=== PATIENT | female | born 1960 | race Caucasian/White ===

== ENCOUNTER 2019-05-29 12:01 | Emergency (ER) | payer OTHER ==
--- NOTE | 2019-05-29 12:43 | XRAY Report ---
Reason: swelling and pain Procedure Date: 05/29/2019 Accession Number: [id number] / [id number] Procedure: XR - Hand 3 View RT CPT Code: Final Report FULL RESULT: EXAM: RIGHT HAND RADIOGRAPHY EXAM DATE: 05/29/2019 12:17 PM. CLINICAL HISTORY: Swelling and pain. COMPARISON: XR WRIST COMPLETE 3 VIEWS 05/27/2010 4:10 AM. TECHNIQUE: 3 views. FINDINGS: Bones: Remote distal radial ORIF with plate and screws. No recent fracture demonstrated. Joints: Normal. No subluxations. Soft Tissues: Normal. No soft tissue swelling. IMPRESSION: 1. Remote distal right radial ORIF with plate and screws. Anatomic alignment. 2. No recent fracture demonstrated. RADIA
--- NOTE | 2019-05-29 13:11 | ED Physician Documentation ---
History of Present Illness - Stated complaint Stated Complaint: R HAND INJURY - Chief complaint Chief Complaint: Ext Problem - Additonal information Additional information: This is a 58 year old female who presents with right hand pain. Patient states she had a glancing blow on her hand about a week ago, and since then she had some pain in the hand which is worsened over the last day or 2. It is located over the MCP of the middle finger and also the ring finger. She has some difficulty flexing extending his fingers because of the pain. The rest of her hand is painless. She denies any fever. There is no laceration or skin damage in that area. She has never had gout before. 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 - Present Medications Home Medications: Ambulatory Orders Medication Instructions Recorded Confirmed Ibuprofen 600 mg PO Q6H PRN #30 tablet 05/29/19 - Allergies Allergies/Adverse Reactions: Allergies Allergy/AdvReac Type Severity Reaction Status Date / Time No Known Drug Allergies Allergy Verified 05/29/19 12:07 - Social History Does the pt smoke?: No Smoking Status: Never smoker Does the pt drink ETOH?: Yes Does the pt have substance abuse?: No PD ED PE NORMAL - Vitals Vital signs reviewed: Yes - General General: Alert and oriented X 3, No acute distress - HEENT HEENT: Atraumatic - Cardiac Cardiac: RRR - Respiratory Respiratory: No respiratory distress - Derm Derm: Warm and dry - Extremities Extremities: Other (On the dorsal right hand over the MCP of the middle finger there is a 1.5 x 2 cm area of erythema, this is tender. There is edema which extends up the middle finger and the ring finger. There is no volar redness was or swelling. There is no tenderness that tracks along the flexor tendons or the dorsal extension tendons. Capillary refill is brisk and sensation is intact light touch.) - Neuro Neuro: Alert and oriented X 3 - Psych Psych: Normal mood, Normal affect Results - Vitals Vitals: Oxygen O2 Source Room air - Labs Labs: Laboratory Tests 05/29/19 05/29/19 13:54 13:54 WBC 6.3 RBC 5.07 Hgb 15.9 Hct 47.2 H MCV 93.1 MCH 31.4 H MCHC 33.7 RDW 12.2 Plt Count 213 MPV 8.6 Neut # (Auto) 4.1 Lymph # (Auto) 1.5 [place] # (Auto) 0.6 Eos # (Auto) 0.1 Baso # (Auto) 0.1 Absolute Nucleated RBC 0.00 Nucleated RBC % 0.0 C-Reactive Protein 1.5 H PD MEDICAL DECISION MAKING - ED course Complexity details: considered differential (Fracture, gout, pseudogout, septic arthritis, arthritis) ED course: Pt is non-toxic, has isolated MCP swelling and redness. XR shows no fracture, it does show a potential tophus. Labs show only slightly elevated CRP, normal WBC. 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 The joint space is very small and not amenable for arthrocentesis at this time. I discussed that if patient is having any worsening, signs of infection such as fever or redness streaking up the hand, or tracking along the tendons, she needs to return immediately to the ED. I discussed the diagnostic uncertainty and that though septic arthitis appears unlikely, if this is an infection it would need immediate treatment and she should have low threshold for return, and close outpatient follow up. Pt agrees and was discharged home. Departure - Departure Disposition: 01 Home, Self Care Clinical Impression: Hand pain Qualifiers: Laterality: right Qualified Code(s): M79.641 - Pain in right hand Condition: Good Follow-Up: Your,PCP [Other] Prescriptions: Ibuprofen 600 mg PO Q6H PRN #30 tablet PRN Reason: Pain Comments: You were seen today for some redness pain and swelling in your hand. I think this is most likely gout or pseudogout, (inflammation of the joint due to crystal deposits). Treatment for this is ibuprofen 600-800 mg every 6 hours until your symptoms are resolving. If you develop signs of infection such as redness streaking up your hand, fever, or other signs or worsening, please return to the emergency department. Otherwise please follow-up with your primary care provider. Forms: Activity restrictions Discharge Date/Time: 05/29/19 15:10
[2019-05-29 14:07] LABS: BASOPHILS # (AUTO) 0.1 10^3/uL (0.0-0.1); BASOPHILS % (AUTO) 1.1 %; EOSINOPHILS # (AUTO) 0.1 10^3/uL (0.0-0.7); EOSINOPHILS % (AUTO) 1.1 %; HGB - HEMOGLOBIN 15.9 g/dL (12.0-16.0); LYMPHOCYTES # (AUTO) 1.5 10^3/uL (1.5-3.5); LYMPHOCYTES % (AUTO) 23.8 %; MEAN CORPUSCULAR HEMOGLOBIN 31.4 pg (27.0-31.0); MEAN CORPUSCULAR HGB CONC 33.7 g/dL (32.0-36.0); MEAN CORPUSCULAR VOLUME 93.1 fL (81.0-99.0); MEAN PLATELET VOLUME 8.6 fL (7.9-10.8); MONOCYTES # (AUTO) 0.6 10^3/uL (0.0-1.0); MONOCYTES % (AUTO) 9.3 %; NEUTROPHILS # (AUTO) 4.1 10^3/uL (1.5-6.6); NEUTROPHILS % (AUTO) 64.4 %; PLT - PLATELET COUNT 213 10^3/uL (130-450); RED BLOOD COUNT 5.07 10^6/uL (4.20-5.40); RED CELL DISTRIBUTION WIDTH 12.2 % (12.0-15.0); WHITE BLOOD COUNT 6.3 x10^3/uL (4.8-10.8)
[2019-05-29 15:17] VITALS: BP 162/90
== END 2019-05-29 15:10 | disposition home or self-care (01) ==
LOC: ED 12:01
DX: M79.641 Pain in right hand (principal)
CPT/HCPCS: 1040M; 36415; 73130; 85025; 86140; 99283; 99284

== ENCOUNTER 2023-03-14 19:37 | Emergency (ER) | payer MEDICAID ==
[2023-03-14 19:43] VITALS: O2SAT 100
--- NOTE | 2023-03-14 19:56 | ED Physician Documentation ---
History of Present Illness - Stated complaint Stated Complaint: L SIDE NUMB/BLURRY VISION - Chief complaint Chief Complaint: Neuro - Additonal information Additional information: 62-year-old female presents to the emergency department for evaluation of 2 days left-sided facial numbness perioral numbness left arm numbness and left lateral foot numbness. The symptoms are intermittent without any inciting factors. They typically last 15 to 20 minutes before abating. Today she reports she was feeling off balance when walking. also reporting blurriness in left eye without eye pain or loss of vision. She has had no falls or trauma. Denies any cva history but does have a history of untreated hypertension. Nondiabetic. Non- smoker. She took 2 large aspirin today because she was concerned she could be having a stroke thus she presents now to the ER. On at the time of my examination she reports that the numbness that she initially had has abated. She has no obvious focal deficits. NIHSS is 0. Review of Systems Constitutional: denies: Fever Cardiac: reports: Reviewed and negative Respiratory: reports: Reviewed and negative GI: reports: Reviewed and negative : reports: Reviewed and negative Neurologic: reports: Numbness. 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 - Present Medications Home Medications: Ambulatory Orders Medication Instructions Recorded Confirmed Ibuprofen 600 mg PO Q6H PRN #30 tablet 05/29/19 - Allergies Allergies/Adverse Reactions: Allergies Allergy/AdvReac Type Severity Reaction Status Date / Time No Known Drug Allergies Allergy Verified 03/14/23 19:39 - Social History Does the pt smoke?: No Smoking Status: Never smoker Does the pt drink ETOH?: Yes Does the pt have substance abuse?: No PD ED PE NORMAL - General General: Alert and oriented X 3, No acute distress - HEENT HEENT: Atraumatic, Ears normal, Moist mucous membranes - Neck Neck: Supple, no meningeal sign, No adenopathy - Cardiac Cardiac: RRR, No murmur - Respiratory Respiratory: No respiratory distress, Clear bilaterally - Abdomen Abdomen: Normal bowel sounds, Soft, Non tender - Back Back: No CVA TTP - Derm Derm: Normal color, Warm and dry, No rash - Extremities Extremities: No deformity - Neuro Neuro: Alert and oriented X 3, setter up 2-12 intact, No motor deficit, Normal speech Eye Opening: Spontaneous Motor: Obeys Commands Verbal: Oriented GCS Score: 15 - Psych Psych: Normal mood Results - Vitals Vitals: Vital Signs - 24 hr 03/14/23 19:39 Temperature 36.5 C Heart Rate 86 Respiratory 16 Rate Blood Pressure 180/90 H O2 Saturation 100 Oxygen O2 Source Room air - EKG (time done) 1958 EKG releavant findings:: EKG personally interpreted by author of this note. Relevant findings are: Rate: Rate (enter#) (80) Rhythm: NSR [place]: Normal Intervals: Normal MD. No: Prolonged QT QRS: LVH Ischemia: Q waves (anterior leads) Compare to prior EKG: Old EKG unavailable Computer interpretation: Agree with computer - Labs Labs: Laboratory Tests 03/14/23 03/14/23 20:12 20:45 WBC 6.0 RBC 5.19 Hgb 15.9 Hct 46.6 MCV 89.8 MCH 30.6 MCHC 34.1 RDW 12.2 Plt Count 201 MPV 10.1 Neut # (Auto) 3.2 Lymph # (Auto) 2.0 Stone # (Auto) 0.6 Eos # (Auto) 0.2 Baso # (Auto) 0.1 Absolute Nucleated RBC 0.00 Nucleated RBC % 0.0 Sodium 138 Potassium 3.4 L Chloride 100 L Carbon Dioxide 27 Anion Gap 11.0 BUN 9 Creatinine 0.4 Estimated GFR (MDRD) 163 Glucose 267 H Calcium 9.6 Total Bilirubin 0.5 AST 44 H ALT 79 H Alkaline Phosphatase 66 Troponin I High Sens 3.5 Total Protein 7.3 Albumin 4.4 Globulin 2.9 Albumin/Globulin Ratio 1.5 Lipase 54 H PD Medical Decision Making - ED course Complexity details: reviewed results, re-evaluated patient, d/w patient ED course: 62-year-old female presents emergency department for evaluation of intermittent left facial numbness, left arm numbness and numbness in the left lateral foot. Symptoms began yesterday. She reports that the symptoms will persist for about 15 to 20 minutes before fully abating. She states that when she was walking today she was feeling off balance and dizzy. No headaches or diplopia. She admits longstanding history of untreated hypertension. Non-smoker. On presentation the emergency department she is alert and well-appearing. She has a nonfocal neuro exam. NIHSS of 0. Initial vital signs revealed some modest hypertension with blood pressure 180/90. Twelve-lead EKG is interpreted by myself was nonischemic though there were Q waves in the anterior leads. troponin negative Initially I did order CBC and electrolytes. Per my interpretation no abnormalities with the CBC. However her chemistry reveals a blood glucose of 267. She does have mild AST ALT derangement of 44 and 79. Patient is concerned that her symptomatology could be suggestive of a stroke. She does have multiple risk factors including untreated hypertension and now diabetes. She did take 2 large adult aspirin prior to coming into the ER. CT angio of the head and neck is pending to evaluate for any stenosis or aneurysms that could become contributing to her symptoms. Patient will be signed out to my nighttime colleague to follow-up on CT imaging results. If negative stable for discharge home. Patient states that she will follow-up with her old doctors at the [facility] to discuss the concerns of elevated blood pressure and diabetes. Departure - Departure Clinical Impression: Left facial numbness, Abnormal EKG Diabetes Qualifiers: Diabetes mellitus type: type 2 Diabetes mellitus fdc insulin use: without fdc use Diabetes mellitus complication status: without complication Qualified Code(s): E11.9 - Type 2 diabetes mellitus without complications Condition: Stable Record reviewed to determine appropriate education?: Yes Comments: As discussed at the bedside you are seen today in the emergency department because you have had 2 days of intermittent numbness in your left face, left arm and left foot. You were concerned you could be having a stroke. Today in the emergency department we did obtain screening labs which do indicate you have now likely developed diabetes. Your blood glucose was 267. Your blood pressure has been elevated here in the emergency department you do have a longstanding history of untreated hypertension. At this juncture it is critical that you follow closely with your primary care doctors to determine a long-term treatment strategy for the hypertension and diabetes. You may also benefit from referral to cardiology for stress test or echocardiogram. Though your EKG today does not show signs that you are having a heart attack, there are changes within the EKG that can indicate a heart event at some time in the remote past. You have what are called Q waves in the anterior leads. Take a baby aspirin daily until advised otherwise. Forms: PCP List NIHSS - Time Time: 19:45 - Level of Consciousness Level of consciousness: (0) Alert, Keenly responsive LOC Questions: (0) Answers both Q's correct LOC Commands: (0) Performs both correctly - Gaze Best Gaze: (0) Normal - Visual Visual: (0) No loss - Facial Palsy Facial Palsy: (0) Normal, symmetrical movement - Motor Arms (both separate) Motor Arm (right): (0) No drift Motor Arm (left): (0) No drift - Motor Legs (both separate) Motor Leg (right): (0) No drift Motor Leg (left): (0) No drift - Limb Ataxia Limb Ataxia: (0) Absent - Sensory Sensory: (0) Normal - Best Language Best Language: (0) No aphasia - Dysarthria Dysarthria: (0) Normal - Extinction and Inattention (formally neg Extinction and inattention: (0) No abnormality - Total Score/Results Total Score/Result: 0
[2023-03-14 20:19] LABS: BASOPHILS # (AUTO) 0.1 10^3/uL (0.0-0.1); EOSINOPHILS # (AUTO) 0.2 10^3/uL (0.0-0.7); EOSINOPHILS % (AUTO) 2.7 %; HCT - HEMATOCRIT 46.6 % (37.0-47.0); HGB - HEMOGLOBIN 15.9 g/dL (12.0-16.0); LYMPHOCYTES % (AUTO) 33.4 %; MEAN CORPUSCULAR HEMOGLOBIN 30.6 pg (27.0-31.0); MEAN CORPUSCULAR HGB CONC 34.1 g/dL (32.0-36.0); MEAN CORPUSCULAR VOLUME 89.8 fL (81.0-99.0); MEAN PLATELET VOLUME 10.1 fL (7.9-10.8); MONOCYTES # (AUTO) 0.6 10^3/uL (0.0-1.0); MONOCYTES % (AUTO) 9.5 %; NEUTROPHILS # (AUTO) 3.2 10^3/uL (1.5-6.6); NEUTROPHILS % (AUTO) 53.1 %; PLT - PLATELET COUNT 201 10^3/uL (130-450); RED BLOOD COUNT 5.19 10^6/uL (4.20-5.40); RED CELL DISTRIBUTION WIDTH 12.2 % (12.0-15.0)
[2023-03-14 21:20] LABS: ALBUMIN 4.4 g/dL (3.2-5.5); ALBUMIN/GLOBULIN RATIO 1.5 (1.0-2.2); BILIRUBIN,TOTAL 0.5 mg/dL (0.2-1.0); CALCIUM 9.6 mg/dL (8.5-10.3); CREATININE 0.4 mg/dL (0.4-1.0); POTASSIUM 3.4 mmol/L (3.5-5.0); TOTAL PROTEIN 7.3 g/dL (6.7-8.2)
[2023-03-14 21:25] LABS: TROPONIN I HIGH SENSITIVITY 3.5 ng/L (2.3-14.8)
[2023-03-14] MEDS ORDERED: iohexoL-300 100 ML VIAL IVP ONE (23:25)
--- NOTE | 2023-03-14 23:36 | ED Physician Documentation ---
ED Addendum - Addendum Addendum: 03/14/23 23:33 Patient endorsed to me at 11pm shift change pending CT report. Briefly, patient is a 62yF with new onset L face/arm/leg numbness for the past few days, found to have previously undiagnosed HTN and hyperglycemia concerning for diabetes here in the ED. Also with new brain mass on CTA c/w possible meningioma. Plan to dc home to f/u with her PCP at [facility] regarding this findings. Disposition home Condition stable Impression 1. hypertension 2. diabetes 3. numbness 4. brain mass 03/14/23 23:55
--- NOTE | 2023-03-14 23:50 | CT Report ---
PROCEDURE: CT Angio Head/Neck INDICATIONS: tongue numbness, left arm numbness, off balance TECHNIQUE: After the administration of intravenous contrast, 1 mm thick sections acquired from the aortic arch t hrough the [place] of [place]. 3-dimensional iigkygg-ghwdcpbgc-knoycrqegm (MIP) and/or volume renderi ng reformats were acquired of the central intracranial vasculature and neck separately. For radiatio n dose reduction, the following was used: automated exposure control, adjustment of mA and/or kV acc ording to patient size. COMPARISON: None available. FINDINGS: Image quality: Diagnostic. Evaluation is limited by absence of noncontrast imaging. BRAIN: CSF spaces: Basal cisterns are patent. No extra-axial fluid collections. Ventricles are normal in size and shape. Brain: No intracranial hematoma collections or midline shift. There is an extra-axial dense mass carol ng the left frontal lobe inferiorly measuring approximately 2.2 x 1.9 x 1.7 cm without associated mas s effect on the adjacent left frontal lobe. This extends slightly across midline along the inferior r ight frontal lobe. Cowart-white matter interface appears preserved. No abnormal intracranial enhanceme nt. Skull and face: Calvarium and facial bones appear intact, without suspicious lesions. Orbits appear normal. Sinuses: Sinuses and mastoids are clear. HEAD CT ANGIOGRAPHY: Anterior circulation: Intracranial internal carotid arteries are normal in size and appear patent bi laterally. There is mild atherosclerotic calcification along the cavernous segments of the internal carotid arteries. The paired anterior cerebral arteries appear patent bilaterally. The anterior com municating artery also appears patent. The middle cerebral arteries appear patent bilaterally. No hi gh-grade stenosis, occlusion, or filling defects. No cerebral aneurysms identified. Posterior circulation: Visualized portions of the vertebral arteries demonstrate normal caliber, and join to form a patent basilar artery. The posterior cerebral arteries appears patent bilaterally. No high-grade stenosis, occlusion, or filling defects. No cerebral aneurysms identified. NECK CT ANGIOGRAPHY: Carotid system: The great vessels demonstrate a conventional anatomy as they arise from the aortic a rch. The origins of the common carotid arteries appear patent. The common carotid arteries demonstr ate normal caliber and courses. There is mild calcified plaque within the carotid bulbs with narrowin g of less than 50%. The internal carotid arteries demonstrate normal calibers and courses. Posterior circulation: The origins of the vertebral arteries both appear patent. The more superior extracranial portions of both vertebral arteries also demonstrate normal courses and calibers. They join to form a patent basilar artery. Soft tissues: Visualized neck soft tissues demonstrate no suspicious abnormalities. Bones: No suspicious bony lesions. Visualized cervical spine demonstrates straightening of the cerv ical lordosis. There is multilevel degenerative disc disease and facet joint arthropathy. IMPRESSION: 1. No high-grade stenosis or occlusion of the central intracranial arteries. 2. Evaluation for intracranial hemorrhage is limited in the absence of noncontrast imaging. 3. Extra-axial dense mass inferior to the left frontal lobe with mild extension across midline. The f indings are nonspecific but likely represent a meningioma. Recommend further evaluation with a contra st enhanced brain MRI with clinically feasible. 4. Bilateral calcified plaque in the carotid bulbs with mild narrowing of less than 50%. The estimate of stenosis included in the report of the imaging study was calculated using the NASCET method Reviewed by: Alan Elizabeth MD on 03/15/2023 12:05 AM PDT Approved by: Alan Elizabeth MD on 03/15/2023 12:05 AM PDT Station ID: [id number]
[2023-03-15 00:07] VITALS: BP 164/87
== END 2023-03-15 00:11 | disposition home or self-care (01) ==
LOC: ED 19:37
DX: I10 Essential (primary) hypertension (principal); E11.65 Type 2 diabetes mellitus with hyperglycemia; R94.31 Abnormal electrocardiogram [ECG] [EKG]; R90.89 Other abnormal findings on diagnostic imaging of central nervous system; R20.0 Anesthesia of skin
CPT/HCPCS: 36415; 70496; 70498; 80053; 83690; 84484; 85025; 93005; 99284; Q9967